=== PATIENT | male | born 2000 | race Caucasian/White ===

== ENCOUNTER → 2020-01-12 10:24 | Outpatient (CLI) | payer OTHER, SELFPAY ==
[2020-01-12 10:24] VITALS: BMI 21.1
--- NOTE | 2020-01-12 10:27 | RAD_ITS ---
STUDY: X-RAY - LEFT FOOT CLINICAL: Male, 19 years old. KICKED A TIRE, PAIN OVER BASE OF BIG TOE TECHNIQUE: 3 view(s) of the foot. COMPARISON: None. FINDINGS: Normal talus, calcaneus, and tarsal bones. Normal visualized subtalar, talonavicular, calcaneocuboid, tarsal and tarsometatarsal articulations. Normal metatarsi. Normal metatarsophalangeal joint of the great toe. Normal tibial and fibular sesamoid bones. Normal interphalangeal joint of the great toe. Nondisplaced oblique fracture through the proximal phalanx of the great toe. Normal second through fifth metatarsophalangeal joints. Normal interphalangeal joints and phalanges of the lesser toes. Soft tissue swelling. RAD/Foot min 3 Views IMPRESSION: Nondisplaced oblique fracture through the proximal phalanx of the great toe with overlying soft tissue swelling. Electronically Signed: Terry Coelho, at 11:26 EDT , Service support ,
== END ==
PROVIDERS: Referring Provider Physician Assistant Surgical; Visit Provider Physician Assistant Surgical
DX: S92.415A Nondisplaced fracture of proximal phalanx of left great toe, initial encounter for closed fracture (principal); W22.09XA Striking against other stationary object, initial encounter
CPT/HCPCS: 73630